=== PATIENT | female | born 1990 | race Caucasian/White ===

== ENCOUNTER 2016-05-26 11:19 | Emergency (ER) | payer MEDICAID | END 2016-05-26 12:51 | disposition home or self-care (01) | LOC: D.ER 11:19 | DX: M75.52 Bursitis of left shoulder (principal) ==

== ENCOUNTER 2016-12-04 21:43 | Emergency (ER) | payer MEDICAID | END 2016-12-05 01:07 | disposition home or self-care (01) | LOC: D.ER 21:43 | DX: J06.9 Acute upper respiratory infection, unspecified (principal) ==

== ENCOUNTER 2018-02-27 00:02 | Inpatient (IN) | payer MEDICAID ==
[~2018-02-27] VITALS: Ht 157.5 cm; Wt 104.5 kg
--- NOTE | 2018-02-27 00:53 | NUR ---
URINE SENT TO LAB
[2018-02-27 00:56] LABS: APPEARANCE CLEAR (CLEAR); COLOR DK YELLOW (YELLOW); NITRITE NEGATIVE (NEGATIVE)
[2018-02-27 00:57] LABS: BILIRUBIN 2+ (NEGATIVE); GLUCOSE NEGATIVE (NEGATIVE); KETONE NEGATIVE (NEGATIVE); PROTEIN NEGATIVE (NEGATIVE)
[2018-02-27 00:59] LABS: HCG URINE NEGATIVE (NEGATIVE)
[2018-02-27 01:16] LABS: BASOPHILS 0.3 % (0-2); EOSINOPHILS 0.7 % (0-7); HEMATOCRIT 37.6 % (36.0-48.0); HEMOGLOBIN 12.8 g/dL (12-16); IMMATURE GRANULOCYTES 0.1 % (0-5); LYMPHOCYTES 12.5 % (15-50); MCH 29.5 pg (26.0-34.0); MCV 86.6 fL (80.0-100.0); MEAN PLATELET VOLUME 9.7 fL (7.4-10.4); MONOCYTES 11.2 % (2-11); NEUTROPHILS 75.2 % (40-80); PLATELET COUNT 258 10x3/uL (130-400); RBC 4.34 10x6/uL (4.00-5.40); WBC 7.3 10x3/uL (4.8-10.8)
[2018-02-27 01:31] LABS: ALBUMIN 3.7 g/dL (3.4-5.0); ALKALINE PHOSPHATASE 148 U/L (46-116); ALT (SGPT) 735 U/L (10-68); BILIRUBIN - TOTAL 3.56 mg/dL (0.2-1.3); CALC OSMOLALITY 281 mosm/kg (275-300); CALCIUM 8.9 mg/dL (8.5-10.1); CARBON DIOXIDE 27.4 mmol/L (21.0-32.0); CHLORIDE - SERUM 104 mmol/L (98-107); CREATININE - SERUM 0.8 mg/dL (0.6-1.3); GLUCOSE 107 mg/dL (74-106); POTASSIUM - SERUM 3.8 mmol/L (3.5-5.1); PROTEIN - SERUM 7.5 g/dL (6.4-8.2); SODIUM 142 mmol/L (136-145); UREA NITROGEN 10 mg/dL (7-18); eGFR NON AFRICAN AMERICAN > 90 mL/min (90-120)
--- NOTE | 2018-02-27 02:49 | NUR ---
PT AMBULATED TO RESTROOM INDEPENDENTLY.
--- NOTE | 2018-02-27 03:01 | NUR ---
FLOOR TECH AT PT'S BEDSIDE TO DO ULTRASOUND
--- NOTE | 2018-02-27 04:57 | NUR ---
REC'D TO ROOM 2218 FROM ER DEPT PER W/C A 27 Y/O W/FE PER SERVICES DR. MCCORMICK WITH DX. CHOLECYSTITIS. NKDA.ASSESSMENT PER ADMIT PACKET.
[2018-02-27 05:07] VITALS: BMI 42.1
--- NOTE | 2018-02-27 08:00 | NUR ---
ASSESSMENT PER FLOW SHEET. PT IS WITHOUT DISTRESS. WATER PROVIDED.CALL LIGHT IN REACH.
[2018-02-27 08:51] VITALS: BP 113/60
[2018-02-27 13:54] LABS: ALBUMIN 2.7 g/dL (3.4-5.0); BILIRUBIN - DIRECT 1.58 mg/dL (0.00-0.30); BILIRUBIN - INDIRECT 0.59 mg/dL (0.00-1.00); BILIRUBIN - TOTAL 2.17 mg/dL (0.2-1.3); PROTEIN - SERUM 5.8 g/dL (6.4-8.2)
[2018-02-27 14:08] VITALS: Ht 157.5 cm; Wt 104.5 kg
[2018-02-27 15:59] VITALS: BP 83/50
--- NOTE | 2018-02-27 18:18 | NUR ---
PAIN CONTROLLED. SHE IS WITHOUT CHNAGE FROM INITIAL SHIFT ASSESSMENT. CONT PLAN OF CARE
--- NOTE | 2018-02-27 19:00 | NUR ---
REPORT RECEIVED AND CARE OF PT ASSUMED. PT LYING IN SEMI GALINDO'S POSITION VISITING WITH FAMILY MEMBERS. IV IN LEFT AC PATENT WITH NS INFUSING AT 125 ML / HR. DILAUDID PORT WARDEN IN USE FOR PAIN CONTROL. WILL MONITOR FOR NEEDS. CALL LIGHT WITHIN REACH.
--- NOTE | 2018-02-27 19:35 | NUR ---
HS MEDICATIONS GIVEN. WILL CONTINUE TO MONITOR FOR NEEDS.
[2018-02-27 20:00] VITALS: BP 99/57
--- NOTE | 2018-02-27 22:43 | NUR ---
PT RESTING IN SEMI GALINDO'S POSITION WITH EYES CLOSED AND EASY RESPIRAITONS. WILL CONTINUE TO MONITOR FOR NEEDS.
[2018-02-28] VITALS (7 sets, daily range): BP systolic 86–137; BP diastolic 49–78
[2018-02-28 05:56] LABS: BASOPHILS 0.1 % (0-2); EOSINOPHILS 0.4 % (0-7); HEMOGLOBIN 11.7 g/dL (12-16); IMMATURE GRANULOCYTES 0.1 % (0-5); LYMPHOCYTES 10.7 % (15-50); MCH 29.3 pg (26.0-34.0); MCHC 32.5 g/dL (31.0-37.0); MEAN PLATELET VOLUME 10.1 fL (7.4-10.4); MONOCYTES 7.3 % (2-11); NEUTROPHILS 81.4 % (40-80); PLATELET COUNT 274 10x3/uL (130-400); RDW 13.7 % (11.5-14.5); WBC 7.8 10x3/uL (4.8-10.8)
[2018-02-28 06:31] LABS: ALBUMIN 2.8 g/dL (3.4-5.0); ALKALINE PHOSPHATASE 135 U/L (46-116); ALT (SGPT) 438 U/L (10-68); BILIRUBIN - TOTAL 2.51 mg/dL (0.2-1.3); CALC OSMOLALITY 275 mosm/kg (275-300); CALCIUM 7.2 mg/dL (8.5-10.1); CARBON DIOXIDE 26.1 mmol/L (21.0-32.0); CHLORIDE - SERUM 107 mmol/L (98-107); CREATININE - SERUM 0.7 mg/dL (0.6-1.3); GLUCOSE 84 mg/dL (74-106); POTASSIUM - SERUM 3.9 mmol/L (3.5-5.1); PROTEIN - SERUM 5.7 g/dL (6.4-8.2); SODIUM 140 mmol/L (136-145); UREA NITROGEN 8 mg/dL (7-18); eGFR NON AFRICAN AMERICAN > 90 mL/min (90-120)
--- NOTE | 2018-02-28 18:55 | NUR ---
PATIENT IN BED WITH IV INTACT. NO COMPLAINTS OR SIGNS OF DISTRESS. BSCDS ON AND WORKING. CALL LIGHT WITHIN REACH.
--- NOTE | 2018-02-28 19:00 | NUR ---
REPORT RECEIVED AND CARE OF PT ASSUMED. PT LYING IN MID GALINDO'S POSITION VISITING WITH FAMILY MEMBERS. IV IN RIGHT FA PATENT WITH NS INFUSING AT 125 ML / HR. EVENTS ASSOCIATE W/ DILAUDID IN USE FOR PAIN CONTROL. WILL MONITOR FOR NEEDS. CALL LIGHT WITHIN REACH.
--- NOTE | 2018-02-28 21:46 | NUR ---
HS MEDICATIONS GIVEN. WILL CONTINUE TO MONITOR FOR NEEDS.
--- NOTE | 2018-02-28 23:43 | NUR ---
NPO STATUS BEGINS AT MIDNIGHT.
[2018-03-01] VITALS (12 sets, daily range): BP systolic 101–142; BP diastolic 56–97
--- NOTE | 2018-03-01 06:23 | NUR ---
PT CONSENTED FOR AM SURGERY. HIBACLENS BATH PERFORMED AND ALL LINENS AND GOWN CHANGED.
--- NOTE | 2018-03-01 10:20 | NUR ---
PATIENT TO OR
--- NOTE | 2018-03-01 12:30 | NUR ---
PATIENT BACK TO ROOM AT THIS TIME. NO COMPLAINTS IV INTACT. BSCDS ON AND WORKING. VS STABLE. FAMILY AT BEDSIDE. CALL LIGHT WITHIN REACH.
[2018-03-01 12:50] LABS: HEMATOCRIT 38.1 % (36.0-48.0); HEMOGLOBIN 12.6 g/dL (12-16); MCH 29.4 pg (26.0-34.0); MCHC 33.1 g/dL (31.0-37.0); MCV 88.8 fL (80.0-100.0); MEAN PLATELET VOLUME 9.5 fL (7.4-10.4); PLATELET COUNT 266 10x3/uL (130-400); RBC 4.29 10x6/uL (4.00-5.40); RDW 13.4 % (11.5-14.5); WBC 23.7 10x3/uL (4.8-10.8)
[2018-03-01 13:11] LABS: LYMPHOCYTES 3 % (15-50); MONOCYTES 1 % (2-11); NEUTROPHILS 91 % (40-80)
[2018-03-01 13:12] LABS: PLATELET ESTIMATE NORMAL
[2018-03-01 13:28] LABS: ALBUMIN 2.6 g/dL (3.4-5.0); ALKALINE PHOSPHATASE 151 U/L (46-116); BILIRUBIN - TOTAL 1.97 mg/dL (0.2-1.3); CALCIUM 7.3 mg/dL (8.5-10.1); CARBON DIOXIDE 24.7 mmol/L (21.0-32.0); CHLORIDE - SERUM 104 mmol/L (98-107); GLUCOSE 94 mg/dL (74-106); POTASSIUM - SERUM 3.6 mmol/L (3.5-5.1); PROTEIN - SERUM 5.3 g/dL (6.4-8.2); SODIUM 139 mmol/L (136-145); eGFR NON AFRICAN AMERICAN > 90 mL/min (90-120)
[2018-03-01 13:29] LABS: ALT (SGPT) 281 U/L (10-68); CALC OSMOLALITY 274 mosm/kg (275-300); CREATININE - SERUM 0.5 mg/dL (0.6-1.3); LIPASE 3241 U/L (73-393); UREA NITROGEN 5 mg/dL (7-18)
[2018-03-01 13:30] LABS: AMYLASE - SERUM 815 U/L (25-115)
--- NOTE | 2018-03-01 15:30 | NUR ---
PATIENT DRESSING TO DRAIN CHANGED AT THIS TIME. LEAKING AROUND SITE. DRAIN EMPTIED. NO COMPLAINTS OR SIGNS OF DISTRESS. VS STABLE CALL LIGHT WITHN REACH.
--- NOTE | 2018-03-01 18:45 | NUR ---
PATIENT IN BED WITH IV ITNACT. NO COMPLAINTS FAMILY AT BEDSIDE. ENCOURAGED PATIENT TO GET UP AND AMBULATE. VERBALIZED UNDERSTANDING. DRESSING TO ABDOMEN CDI. BSCDS OFF. FAMILY AT BEDSIDE. CALL LIGHT WITHIN REACH.
--- NOTE | 2018-03-01 19:00 | NUR ---
REPORT RECEIVED AND CARE OF PT ASSUMED. PT LYING IN LOW GALINDO'S POSITION WITH EYES CLOSED. IV IN LEFT AC PATENT WITH NS INFUSING AT 125 ML / HR. RIGHT ARM SWOLLEN....IV FLUSHES WELL...WILL MONITOR BECCA.
--- NOTE | 2018-03-01 19:20 | NUR ---
PT SLEEPING...O2 SATS 79% AT THIS VITALS CHECK. PUT ON 2L O2 VIA NC AND CARE UP TO 94%. WILL LEAVE ON O2 FOR NOW.
--- NOTE | 2018-03-01 20:56 | NUR ---
HS MEDICATIONS GIVEN. WILL CONTINUE TO MONITOR FOR NEEDS.
--- NOTE | 2018-03-01 22:01 | NUR ---
PT AMBULATING IN THE HALLWAY AT THIS TIME.
[2018-03-02] VITALS (7 sets, daily range): BP systolic 90–116; BP diastolic 57–70
[2018-03-02 06:44] LABS: BASOPHILS 0 % (0-2); EOSINOPHILS 0.1 % (0-7); HEMATOCRIT 32.2 % (36.0-48.0); HEMOGLOBIN 10.6 g/dL (12-16); IMMATURE GRANULOCYTES 0.2 % (0-5); LYMPHOCYTES 6.1 % (15-50); MCHC 32.9 g/dL (31.0-37.0); MEAN PLATELET VOLUME 9.9 fL (7.4-10.4); MONOCYTES 6.6 % (2-11); PLATELET COUNT 271 10x3/uL (130-400); RBC 3.66 10x6/uL (4.00-5.40); RDW 13.5 % (11.5-14.5); WBC 20.8 10x3/uL (4.8-10.8)
[2018-03-02 06:57] LABS: ALBUMIN 2.1 g/dL (3.4-5.0); ALKALINE PHOSPHATASE 114 U/L (46-116); ALT (SGPT) 211 U/L (10-68); BILIRUBIN - TOTAL 0.85 mg/dL (0.2-1.3); CALCIUM 7.3 mg/dL (8.5-10.1); CARBON DIOXIDE 27.5 mmol/L (21.0-32.0); CHLORIDE - SERUM 105 mmol/L (98-107); CREATININE - SERUM 0.6 mg/dL (0.6-1.3); GLUCOSE 88 mg/dL (74-106); POTASSIUM - SERUM 3.3 mmol/L (3.5-5.1); PROTEIN - SERUM 5.5 g/dL (6.4-8.2); SODIUM 141 mmol/L (136-145); eGFR NON AFRICAN AMERICAN > 90 mL/min (90-120)
[2018-03-02 06:58] LABS: CALC OSMOLALITY 277 mosm/kg (275-300); UREA NITROGEN 7 mg/dL (7-18)
[2018-03-02 09:37] LABS: LIPASE 932 U/L (73-393)
[2018-03-02 09:43] LABS: AMYLASE - SERUM 305 U/L (25-115)
--- NOTE | 2018-03-02 17:55 | OP ---
PATIENT NAME: CAROL MUSTAFA MEDICAL RECORD: [id number] :[birth year] LOCATION:D.MS [id number] ADMISSION DATE:02/27/18 SURGEON: ELLIOT MCCORMICK MD DATE OF OPERATION: 03/01/2018 PREOPERATIVE DIAGNOSES: 1. Acute cholecystitis. 2. Gallstones. POSTOPERATIVE DIAGNOSES: 1. Acute cholecystitis. 2. Gallstones. PROCEDURE: Laparoscopic cholecystectomy with attempted intraoperative cholangiogram. SURGEON: Elliot Mccormick MD REPORT OF PROCEDURE: The patient's abdomen was prepped and draped in sterile fashion. A cutdown was made on the superior aspect of the umbilicus. Vicryls #0 were placed on the fascia bilaterally and the fascia was incised with #15 blade. I then bluntly entered the peritoneal cavity and placed a 12-mm Pasquale port. Under direct visualization, a 5-mm trocar was placed in the epigastrium and two more 5-mm trocars were placed in the right subcostal region. There was noted to be inflammatory ascitic fluid in the right upper quadrant, but no signs of bile. This was suctioned out. We then grasped the gallbladder which had acute inflammatory changes present with edema to the wall. These were teased down carefully with blunt dissection. The patient had a large cystic artery and this was closely adherent to swollen lymph node. The artery was clipped proximally and distally and ligated in standard fashion. As we dissected out to get our critical view of safety, we could see there was another arterial branch present. This was clipped proximally and distally and ligated. This left us with the cystic duct. A couple of clips were placed proximally and an opening was made on the cystic duct. We were able to pass the Cook cholangiocath through the abdominal wall and into the cystic duct. There was some resistance with placing this, but eventually it was able to pass through. Multiple attempts were made to perform a cholangiogram, but there was always just extravasation of the contrast. We tried repositioning the catheter in different places. We tried opening up the cystotomy even further and every time we would pass the catheter through to the duct, we would get just extravasation of the contrast. I could see there was some extravasation down a little bit deeper on the cystic ducts. We dissected down to this and saw there was a small opening present. At this point, since the patient had an MRCP, which was normal, I decided to discontinue attempts in an intraoperative cholangiogram and just clipped the cystic duct distal to the small injury and the cystic duct was ligated. At this point, the gallbladder was taken off the liver bed using electrocautery and placed into an EndoCatch bag. The right upper quadrant was irrigated out and any bleeding from the liver bed was treated with electrocautery. A 19-Nepali Alvarado drain was inserted in the most lateral subcostal trocar site and was sutured into place with 2-0 nylon. The ports and insufflation were then removed and the gallbladder was taken out through the umbilicus. The umbilical fascia was closed with interrupted #0 Vicryls times 3. The wounds were irrigated out with normal saline and infused with 10 mL of 0.25% Marcaine with epinephrine. The skin incisions were all closed with subcutaneous 5-0 Monocryl and dressed appropriately. OPERATIVE REPORT [id number] CAROL MUSTAFA COMPLICATIONS: None. CONDITION: Stable. ANESTHESIA: General endotracheal and local. BLOOD LOSS: 30 mL. TRANSINT:[id number] Voice Confirmation ID: [id number] DOCUMENT ID: [id number] ELLIOT MCCORMICK MD at 1755 CC: [id number] DICTATION DATE: 03/01/18 1152 SURTASS ANALYST: 03/01/18 1539 ADM IN [place] [id number] [place] [id number]
--- NOTE | 2018-03-02 21:00 | NUR ---
PT SITTING UP IN BED, NO SIGNS OF DISTRESS. ALERT AND ORIENTED. IV LEFT AC INFUSING NS W/ DILAUDID SWITCHBOARD WIRER. PT STATES DISCOMFORT IN ABD, "FEELS LIKE GAS." ABD INCISIONS DRESSING CDI, FOSTER DRAIN DRAINING SERIOUS FLUID. PT AMBULATED IN HALLWAY, MADE 2 LAPS W/ MINIMAL ASSIST W/O DIFFICULTY. PT WAS ABLE TO START PASSING GAS. NO OTHER NEEDS OR COMPLAINTS AT THIS TIME. CL IN REACH, WILL CONTINUE TO MONITOR
[2018-03-03] VITALS (7 sets, daily range): BP systolic 109–132; BP diastolic 69–81
[2018-03-03 06:17] LABS: BASOPHILS 0.1 % (0-2); EOSINOPHILS 0.3 % (0-7); HEMATOCRIT 32.2 % (36.0-48.0); HEMOGLOBIN 10.7 g/dL (12-16); IMMATURE GRANULOCYTES 0.5 % (0-5); LYMPHOCYTES 6.1 % (15-50); MCH 29.4 pg (26.0-34.0); MCHC 33.2 g/dL (31.0-37.0); MCV 88.5 fL (80.0-100.0); MEAN PLATELET VOLUME 9.8 fL (7.4-10.4); MONOCYTES 8.2 % (2-11); NEUTROPHILS 84.8 % (40-80); PLATELET COUNT 290 10x3/uL (130-400); RBC 3.64 10x6/uL (4.00-5.40); RDW 13.7 % (11.5-14.5); WBC 17.2 10x3/uL (4.8-10.8)
[2018-03-03 06:36] LABS: ALBUMIN 2.1 g/dL (3.4-5.0); ALKALINE PHOSPHATASE 100 U/L (46-116); BILIRUBIN - TOTAL 0.93 mg/dL (0.2-1.3); CALCIUM 7.6 mg/dL (8.5-10.1); CHLORIDE - SERUM 102 mmol/L (98-107); CREATININE - SERUM 0.5 mg/dL (0.6-1.3); GLUCOSE 93 mg/dL (74-106); LIPASE 216 U/L (73-393); POTASSIUM - SERUM 3.1 mmol/L (3.5-5.1); PROTEIN - SERUM 5.6 g/dL (6.4-8.2); SODIUM 141 mmol/L (136-145); eGFR NON AFRICAN AMERICAN > 90 mL/min (90-120)
[2018-03-03 06:40] LABS: ALT (SGPT) 157 U/L (10-68); AMYLASE - SERUM 101 U/L (25-115); CALC OSMOLALITY 277 mosm/kg (275-300); UREA NITROGEN 5 mg/dL (7-18)
--- NOTE | 2018-03-03 08:15 | NUR ---
PATIENT IN BED WITH IV INTACT. NO COMPLAINTS OR SIGNS OF DISTRESS. FAMILY AT BEDSIDE. CALL LIGHT WITHIN REACH.
--- NOTE | 2018-03-03 10:00 | NUR ---
PATIENT SITTING UP IN CHAIR. IV INTACT. CALL LIGHT WITHIN REACH. FOSTER DRAIN INTACT AND EMPTIED.
--- NOTE | 2018-03-03 13:40 | NUR ---
PATIENT RECIEVED BB FROM MOM AT THIS TIME.
--- NOTE | 2018-03-03 18:55 | NUR ---
PATIENT IN BED WITH IV INTACT. NO COMPLAINTS. FOSTER DRAIN COMPRESSED AND INTACT. CALL LIGHT WITHIN REACH.
[2018-03-04 04:00] VITALS: BP 126/74
[2018-03-04 05:56] LABS: BASOPHILS 0.1 % (0-2); HEMATOCRIT 30.4 % (36.0-48.0); HEMOGLOBIN 10.1 g/dL (12-16); IMMATURE GRANULOCYTES 0.3 % (0-5); LYMPHOCYTES 6.3 % (15-50); MCH 29.2 pg (26.0-34.0); MCHC 33.2 g/dL (31.0-37.0); MCV 87.9 fL (80.0-100.0); MEAN PLATELET VOLUME 9.4 fL (7.4-10.4); NEUTROPHILS 82.3 % (40-80); PLATELET COUNT 314 10x3/uL (130-400); RBC 3.46 10x6/uL (4.00-5.40); RDW 13.7 % (11.5-14.5); WBC 14.3 10x3/uL (4.8-10.8)
[2018-03-04 06:41] LABS: ALBUMIN 1.9 g/dL (3.4-5.0); ALKALINE PHOSPHATASE 93 U/L (46-116); BILIRUBIN - TOTAL 0.91 mg/dL (0.2-1.3); CALC OSMOLALITY 277 mosm/kg (275-300); CALCIUM 7.6 mg/dL (8.5-10.1); CARBON DIOXIDE 30.5 mmol/L (21.0-32.0); CHLORIDE - SERUM 102 mmol/L (98-107); CREATININE - SERUM 0.4 mg/dL (0.6-1.3); GLUCOSE 102 mg/dL (74-106); LIPASE 122 U/L (73-393); PROTEIN - SERUM 5.3 g/dL (6.4-8.2); SODIUM 141 mmol/L (136-145); UREA NITROGEN 5 mg/dL (7-18); eGFR NON AFRICAN AMERICAN > 90 mL/min (90-120)
[2018-03-04 06:59] LABS: ALT (SGPT) 103 U/L (10-68); AMYLASE - SERUM 42 U/L (25-115); POTASSIUM - SERUM 2.9 mmol/L (3.5-5.1)
[2018-03-04 08:39] VITALS: BP 110/72
[2018-03-04] MEDS ORDERED: NORCO-10 PO (09:03)
[2018-03-04] MEDS ORDERED: LEVAQUIN750 MG PO (09:04)
--- NOTE | 2018-03-04 09:40 | MORECARE ---
CASE MANAGEMENT DISCHARGE SUMMARY PATIENT: CAROL WILLIAMSON UNIT: [id number] ADM DATE: 02/27/18 AGE: 27 : [birth year] SEX: F ROOM/BED: D.2218 AUTHOR: TERA ORTIZ PHYSICIAN: REFERRING PHYSICIAN: MORRIS MCCORMICK MD DATE OF SERVICE: 03/04/18 Discharge Plan Patient Name: CAROL WILLIAMSON [facility] [facility] 1990 Planned Disposition: Home Anticipated Discharge Date: Discharge Date: Expected LOS: Initial Reviewer: [email or web address] Initial Review Date: 03/04/2018 Generated: 03/04/18 10:39 am DCPIA - Discharge Planning Initial Assessment Updated by [email or web address]: Dior Hinson on 03/04/18 9:40 am * Is the patient Alert and Oriented? Yes * How many steps to enter\exit or inside your home? 03/03 * PCP None * Pharmacy [facility] on [address] * Preadmission Environment Home with Family * ADLs Independent * Equipment None * List name and contact numbers for known caregivers / representatives who currently or will assist patient after discharge: Keisha Williamson - mother - [phone] * Verbal permission to speak to the caregivers and representatives has been obtained from the patient. Yes * Community resources currently utilized None * Additional services required to return to the preadmission environment? No * Can the patient safely return to the preadmission environment? Yes * Has this patient been hospitalized within the prior 30 days at any hospital? No Patient Name: CAROL WILLIAMSON Page [id number] at 0940 All edits/amendments must be made on the electronic document DICTATION DATE: 03/04/18938 THERAPIST RESPIRATORY: MAYLIN 03/04/18938 RPT#: [id number] DC DATE: STATUS: ADM IN [facility] [address] [place] [address] END OF REPORT
--- NOTE | 2018-03-04 09:43 | NUR ---
ASSESSMENT PER FLOW SHEET. PT IS WITHOUT DISTRESS.CALL LIGHT IN REACH
--- NOTE | 2018-03-04 09:47 | MORECARE ---
CASE MANAGEMENT DISCHARGE SUMMARY PATIENT: CAROL MUSTAFA UNIT: [id number] ADM DATE: 02/27/18 AGE: 27 : [birth year] SEX: F ROOM/BED: D.2218 AUTHOR: TERA ORTIZ PHYSICIAN: REFERRING PHYSICIAN: MORRIS MCCORMICK MD DATE OF SERVICE: 03/04/18 Discharge Plan Patient Name: CAROL MUSTAFA Facility: [facility]:[place] : 1990 Planned Disposition: Home Anticipated Discharge Date: Discharge Date: Expected LOS: Initial Reviewer: [email or web address] Initial Review Date: 03/04/2018 Generated: 03/04/18 10:46 am Comments DCP- Discharge Planning Updated by [email or web address]: Dior Hinson on 03/04/18 8:[address] Patient Name: CAROL MUSTAFA Admission Status: ER Accout number: [id number] Admission Date: 02-27-2018 : 1990 Admission Diagnosis:ACUTE CHOLECYSTITIS Attending: MORRIS MCCORMICK Current LOS: 5 Anticipated DC Date: Planned Disposition: Home Primary Insurance: MEDICAID [place] PENDING Discharge Planning Comments: Received order for discharge. CM met with patient to discuss discharge plan, she is alone in the room. States she is independent with all ADL's and IADL's. States her mother will take her home on discharge, she lives with her mother. Declines need for HHS or DME. No needs identified. CM will continue to follow and assist with discharge planning/needs. Engineering Tech: Dior Hinson DCPIA - Discharge Planning Initial Assessment Updated by [email or web address]: Dior Hinson on 03/04/18 9:40 am * Is the patient Alert and Oriented? Yes * How many steps to enter\exit or inside your home? 03/03 * PCP None * Pharmacy [facility] [address] * Preadmission Environment Home with Family * ADLs Independent * Equipment None * List name and contact numbers for known caregivers / representatives who currently or will assist patient after discharge: Keisha Ragland mother - [phone] * Verbal permission to speak to the caregivers and representatives has been obtained from the patient. Yes * Community resources currently utilized None * Additional services required to return to the preadmission environment? No * Can the patient safely return to the preadmission environment? Yes * Has this patient been hospitalized within the prior 30 days at any hospital? No Last DP export: 03/04/18 8:40 am Patient Name: CAROL MUSTAFA Page [id number] at 0947 All edits/amendments must be made on the electronic document DICTATION DATE: 03/04/18945 ANODIZING LINE OPERATOR: MAYLIN 03/04/18945 RPT#: [id number] DC DATE: STATUS: ADM IN [facility] [address] [place] [address] END OF REPORT
--- NOTE | 2018-03-04 10:00 | NUR ---
DISCHARGE INSTRUCTIONS. PT STATES UNDERSTANDING. IV DCD WITH CATH TIP INTACT. FOSTER DRAIN DCD ORDERED.
--- NOTE | 2018-03-04 10:21 | NUR ---
PT IS STILL WAITING ON RIDE FOR TRANSPORT HOME
--- NOTE | 2018-03-04 11:00 | NUR ---
LEFT UNIT FOR TRANSORT HOME
--- NOTE | 2018-03-04 16:25 | MORECARE ---
CASE MANAGEMENT DISCHARGE SUMMARY PATIENT: CAROL WILLIAMSON UNIT: [id number] ADM DATE: 02/27/18 AGE: 27 : [birth year] SEX: F ROOM/BED: D.2218 AUTHOR: TERA ORTIZ PHYSICIAN: REFERRING PHYSICIAN: MORRIS MCCORMICK MD DATE OF SERVICE: 03/04/18 Discharge Plan Patient Name: CAROL WILLIAMSON Facility: [facility]:[place] : 1990 Planned Disposition: Home Anticipated Discharge Date: Discharge Date: 03/04/2018 Expected LOS: 0 Initial Reviewer: [email or web address] Initial Review Date: 03/04/2018 Generated: 03/04/18 5:25 pm Comments DCP- Discharge Planning Updated by [email or web address]: Dior Hinson on 03/04/18 8:[address] Patient Name: CAROL WILLIAMSON Admission Status: ER Accout number: [id number] Admission Date: 02-27-2018 : 1990 Admission Diagnosis:ACUTE CHOLECYSTITIS Attending: MORRIS MCCORMICK Current LOS: 5 Anticipated DC Date: Planned Disposition: Home Primary Insurance: MEDICAID [place] PENDING Discharge Planning Comments: Received order for discharge. CM met with patient to discuss discharge plan, she is alone in the room. States she is independent with all ADL's and IADL's. States her mother will take her home on discharge, she lives with her mother. Declines need for HHS or DME. No needs identified. CM will continue to follow and assist with discharge planning/needs. Refractory Worker: Dior Hinson DCPIA - Discharge Planning Initial Assessment Updated by [email or web address]: Dior Hinson on 03/04/18 9:40 am * Is the patient Alert and Oriented? Yes * How many steps to enter\exit or inside your home? 03/03 * PCP None * Pharmacy [facility] [address] * Preadmission Environment Home with Family * ADLs Independent * Equipment None * List name and contact numbers for known caregivers / representatives who currently or will assist patient after discharge: Keisha Williamson - mother - [phone] * Verbal permission to speak to the caregivers and representatives has been obtained from the patient. Yes * Community resources currently utilized None * Additional services required to return to the preadmission environment? No * Can the patient safely return to the preadmission environment? Yes * Has this patient been hospitalized within the prior 30 days at any hospital? No Last DP export: 03/04/18 8:46 am Patient Name: CAROL WILLIAMSON Page [id number] at 1625 All edits/amendments must be made on the electronic document DICTATION DATE: 03/04/181623 PAINTER PLATE: MAYLIN 03/04/181623 RPT#: [id number] DC DATE:03/04/18 STATUS: DIS IN [facility] [address] [place] [address] END OF REPORT
== END 2018-03-04 11:00 | disposition home or self-care (01) | DRG 417 ==
LOC: D.ER 00:02 → D.MS 03:21
PROVIDERS: Emergency Medicine; ADMIT Surgery
PROC: 0FT44ZZ Resection of Gallbladder, Percutaneous Endoscopic Approach (ICD-10-PCS; principal; 2018-03-01 10:00)
DX: K80.42 Calculus of bile duct with acute cholecystitis without obstruction (principal); K85.10 Biliary acute pancreatitis without necrosis or infection

== ENCOUNTER 2018-03-10 18:53 | Inpatient (IN) | payer MEDICAID ==
[~2018-03-10] VITALS: Ht 157.5 cm; Wt 104.5 kg
[~2018-03-10 18:53] MED LIST: LEVAQUIN750 MG PO; NORCO-10 PO
[2018-03-10 19:40] LABS: APPEARANCE CLEAR (CLEAR); BILIRUBIN NEGATIVE (NEGATIVE); COLOR YELLOW (YELLOW); GLUCOSE NEGATIVE (NEGATIVE); KETONE NEGATIVE (NEGATIVE); NITRITE NEGATIVE (NEGATIVE); PROTEIN NEGATIVE (NEGATIVE); UROBILINOGEN NORMAL (NORMAL)
[2018-03-10 19:56] LABS: BASOPHILS 0.3 % (0-2); EOSINOPHILS 0.8 % (0-7); HEMATOCRIT 34.6 % (36.0-48.0); HEMOGLOBIN 11.4 g/dL (12-16); IMMATURE GRANULOCYTES 0.6 % (0-5); LYMPHOCYTES 17.4 % (15-50); MCH 28.9 pg (26.0-34.0); MCHC 32.9 g/dL (31.0-37.0); MCV 87.8 fL (80.0-100.0); MEAN PLATELET VOLUME 8.6 fL (7.4-10.4); MONOCYTES 5.2 % (2-11); NEUTROPHILS 75.7 % (40-80); RBC 3.94 10x6/uL (4.00-5.40); RDW 13.3 % (11.5-14.5); WBC 13.2 10x3/uL (4.8-10.8)
[2018-03-10 20:09] LABS: PLATELET COUNT 534 10x3/uL (130-400)
[2018-03-10 20:14] LABS: ALBUMIN 2.4 g/dL (3.4-5.0); ALKALINE PHOSPHATASE 89 U/L (46-116); ALT (SGPT) 46 U/L (10-68); AMYLASE - SERUM 78 U/L (25-115); BILIRUBIN - TOTAL 0.39 mg/dL (0.2-1.3); CALC OSMOLALITY 276 mosm/kg (275-300); CALCIUM 8.8 mg/dL (8.5-10.1); CARBON DIOXIDE 28.3 mmol/L (21.0-32.0); CHLORIDE - SERUM 103 mmol/L (98-107); CREATININE - SERUM 0.8 mg/dL (0.6-1.3); GLUCOSE 93 mg/dL (74-106); LIPASE 776 U/L (73-393); POTASSIUM - SERUM 3.8 mmol/L (3.5-5.1); SODIUM 140 mmol/L (136-145); UREA NITROGEN 6 mg/dL (7-18); eGFR NON AFRICAN AMERICAN > 90 mL/min (90-120)
--- NOTE | 2018-03-10 22:16 | NUR ---
RECIEVED TO ROOM. ALERT,ORIENTED.NO DISTRESS NOTED. RESP UNLAOBORED. SL TO RIGHT HAND WITHOUT REDNESS OR EDEMA NOTED. COMPLAINTS OF ABD PAIN. ABD SOFT NONDISTENDED.STERI STRIPS INTACT TO ABD LAP INCISIONS FROM PREVIOUS SURGERY. NO DRAINAGE NOTED. ORIENTED TO ROOM. CL IN REACH.
[2018-03-11 00:47] VITALS: BP 111/66; BMI 42.1
[2018-03-11 05:36] VITALS: BP 92/53
--- NOTE | 2018-03-11 08:28 | NUR ---
PT RESTING IN BED TALKING ON PHONE. NO S/S OF ACUTE DISTRESS. CL IN PLACE.
[2018-03-11 08:45] VITALS: BP 90/55
[2018-03-11 09:15] LABS: BASOPHILS 0.2 % (0-2); EOSINOPHILS 1.6 % (0-7); HEMOGLOBIN 10.8 g/dL (12-16); IMMATURE GRANULOCYTES 0.7 % (0-5); LYMPHOCYTES 19.8 % (15-50); MCH 28.8 pg (26.0-34.0); MCHC 32.7 g/dL (31.0-37.0); MEAN PLATELET VOLUME 8.3 fL (7.4-10.4); MONOCYTES 7.4 % (2-11); NEUTROPHILS 70.3 % (40-80); PLATELET COUNT 429 10x3/uL (130-400); RBC 3.75 10x6/uL (4.00-5.40); RDW 13.4 % (11.5-14.5)
[2018-03-11 09:29] LABS: ALBUMIN 2.2 g/dL (3.4-5.0); ALKALINE PHOSPHATASE 79 U/L (46-116); ALT (SGPT) 40 U/L (10-68); BILIRUBIN - TOTAL 0.41 mg/dL (0.2-1.3); CALC OSMOLALITY 269 mosm/kg (275-300); CALCIUM 8.4 mg/dL (8.5-10.1); CARBON DIOXIDE 28.7 mmol/L (21.0-32.0); CHLORIDE - SERUM 104 mmol/L (98-107); CREATININE - SERUM 0.7 mg/dL (0.6-1.3); GLUCOSE 89 mg/dL (74-106); LIPASE 642 U/L (73-393); POTASSIUM - SERUM 3.7 mmol/L (3.5-5.1); PROTEIN - SERUM 6.3 g/dL (6.4-8.2); SODIUM 137 mmol/L (136-145); eGFR NON AFRICAN AMERICAN > 90 mL/min (90-120)
[2018-03-11 09:31] LABS: UREA NITROGEN 4 mg/dL (7-18)
[2018-03-11 09:33] LABS: WBC 9.5 10x3/uL (4.8-10.8)
[2018-03-11 09:55] VITALS: Ht 157.5 cm; Wt 104.5 kg
[2018-03-11 12:59] VITALS: BP 100/64
[2018-03-11 17:01] VITALS: BP 108/70
--- NOTE | 2018-03-11 20:04 | NUR ---
PT RESTING IN BED WITH X6 FAMILY MEMBERS IN THE ROOM. NO S/S OF ACUTE DISTRESS. CL IN PLACE.
--- NOTE | 2018-03-11 20:23 | NUR ---
AWAKE,ALERT,NO COMPLAINTS VOICED. RESP EVEN AND UNALBORED. NO DISTRESS NOTED. IV INFUSING TO RIGHT HAND WITHOUT REDNESS OR EDEMA NOTED. CL IN REACH
[2018-03-12 00:15] VITALS: BP 94/51
--- NOTE | 2018-03-12 00:33 | NUR ---
LYING IN BED WITH EYES CLOSED. RESP EVEN AND NONLABORED. NO DISTRESS. IV INFUSING IN RT HAND WITHOUT DIFF. WOOL FLEECE SORTER IN USE. SR ELEVATED X2. CL IN REACH.
[2018-03-12 04:23] VITALS: BP 110/74
[2018-03-12 05:12] LABS: ALBUMIN 2.1 g/dL (3.4-5.0); ALKALINE PHOSPHATASE 69 U/L (46-116); ALT (SGPT) 35 U/L (10-68); AMYLASE - SERUM 90 U/L (25-115); BILIRUBIN - TOTAL 0.41 mg/dL (0.2-1.3); CALC OSMOLALITY 287 mosm/kg (275-300); CALCIUM 8.4 mg/dL (8.5-10.1); CARBON DIOXIDE 29.8 mmol/L (21.0-32.0); CHLORIDE - SERUM 105 mmol/L (98-107); CREATININE - SERUM 0.6 mg/dL (0.6-1.3); GLUCOSE 77 mg/dL (74-106); LIPASE 674 U/L (73-393); POTASSIUM - SERUM 3.6 mmol/L (3.5-5.1); PROTEIN - SERUM 6.1 g/dL (6.4-8.2); SODIUM 146 mmol/L (136-145); eGFR NON AFRICAN AMERICAN > 90 mL/min (90-120)
[2018-03-12 05:21] LABS: UREA NITROGEN 7 mg/dL (7-18)
--- NOTE | 2018-03-12 08:05 | NUR ---
PT AOX4 RESP EVEN AND NONLABORED PT DENIES NEEDS AT THIS TIME IV TO RIGHT HAND PATENT AND INTACT AT THIS TIME SRX2 BED AT LOWEST SETTING CALL LIGHT WITHIN REACH WILL CONTINUE TO MONITOR
[2018-03-12 08:22] VITALS: BP 99/56
--- NOTE | 2018-03-12 12:17 | MORECARE ---
CASE MANAGEMENT DISCHARGE SUMMARY PATIENT: CAROL MUSTAFA UNIT: [id number] ADM DATE: 03/10/18 AGE: 27 : [birth year] SEX: F ROOM/BED: D.2201 AUTHOR: TERA ORTIZ PHYSICIAN: REFERRING PHYSICIAN: MORRIS MCCORMICK MD DATE OF SERVICE: 03/12/18 Discharge Plan Patient Name: CAROL MUSTAFA [facility] [facility] 1990 Planned Disposition: Home Anticipated Discharge Date: Discharge Date: Expected LOS: Initial Reviewer: [email or web address] Initial Review Date: 03/10/2018 Generated: 03/12/18 1:17 pm DCPIA - Discharge Planning Initial Assessment Updated by [email or web address]: Yue Griffith on 03/12/18 12:14 pm * Is the patient Alert and Oriented? Yes * How many steps to enter\exit or inside your home? * PCP NONE * Pharmacy [facility] ON [address] * Preadmission Environment Home with Family * ADLs Independent * Equipment None * List name and contact numbers for known caregivers / representatives who currently or will assist patient after discharge: MARILYN () [phone] * Verbal permission to speak to the caregivers and representatives has been obtained from the patient. Yes * Community resources currently utilized None * Additional services required to return to the preadmission environment? No * Can the patient safely return to the preadmission environment? Yes * Has this patient been hospitalized within the prior 30 days at any hospital? Yes Patient Name: CAROL MUSTAFA Page 13658 at 1217 All edits/amendments must be made on the electronic document DICTATION DATE: 03/12/18 1217 TUBER OPERATOR: MAYLIN 03/12/18 1217 RPT#: [id number] DC DATE: STATUS: ADM IN [facility] [address] [place] [address] END OF REPORT
--- NOTE | 2018-03-12 12:40 | MORECARE ---
CASE MANAGEMENT DISCHARGE SUMMARY PATIENT: CAROL MUSTAFA UNIT: [id number] ADM DATE: 03/10/18 AGE: 27 : [birth year] SEX: F ROOM/BED: D.2201 AUTHOR: DIANADOC PHYSICIAN: REFERRING PHYSICIAN: MORRIS MCCORMICK MD DATE OF SERVICE: 03/12/18 Discharge Plan Patient Name: CAROL MUSTAFA Facility: [facility]:[place] : 1990 Planned Disposition: Home Anticipated Discharge Date: Discharge Date: Expected LOS: Initial Reviewer: [email or web address] Initial Review Date: 03/10/2018 Generated: 03/12/18 1:40 pm Comments DCP- Discharge Planning Updated by [email or web address]: Yue Griffith on 03/12/18 11:[address] Patient Name: CAROL MUSTAFA Admission Status: ER Accout number: [id number] Admission Date: 03-10-2018 : 1990 Admission Diagnosis: Attending: MORRIS MCCORMICK Current LOS: 2 Anticipated DC Date: Planned Disposition: Home Primary Insurance: MEDICAID [place] Discharge Planning Comments: CM met with patient to assess discharge planning needs. Patient stated that she plans to return home and Oj will be her dedicated driver home. She does not use any DME or community resources she states her home is safe to return. CM will continue to follow and assist with dc ploanning Director Hris: Yue Griffith DCPIA - Discharge Planning Initial Assessment Updated by [email or web address]: Yue Griffith on 03/12/18 12:14 pm * Is the patient Alert and Oriented? Yes * How many steps to enter\exit or inside your home? * PCP NONE * Pharmacy [facility] [address] * Preadmission Environment Home with Family * ADLs Independent * Equipment None * List name and contact numbers for known caregivers / representatives who currently or will assist patient after discharge: OJ () [phone] * Verbal permission to speak to the caregivers and representatives has been obtained from the patient. Yes * Community resources currently utilized None * Additional services required to return to the preadmission environment? No * Can the patient safely return to the preadmission environment? Yes * Has this patient been hospitalized within the prior 30 days at any hospital? Yes Last DP export: 03/12/18 11:17 a Patient Name: CAROL MUSTAFA Page [phone] at 1240 All edits/amendments must be made on the electronic document DICTATION DATE: 03/12/18 124 PRACTICE ARCHITECT: MAYLIN 03/12/18 1240 RPT#: [id number] DC DATE: STATUS: ADM IN [facility] [address] [place] [address] END OF REPORT
[2018-03-12 13:16] VITALS: BP 115/70
[2018-03-12 16:51] VITALS: BP 116/70
[2018-03-12 20:53] VITALS: BP 114/75
--- NOTE | 2018-03-13 02:52 | NUR ---
RESTING SLEEPING NO S/S OF DISTRESS. CALL LIGHT IN REACH.
[2018-03-13 04:51] VITALS: BP 110/63
[2018-03-13 05:25] LABS: BASOPHILS 0.1 % (0-2); EOSINOPHILS 1.5 % (0-7); HEMATOCRIT 33.3 % (36.0-48.0); HEMOGLOBIN 11.1 g/dL (12-16); IMMATURE GRANULOCYTES 0.4 % (0-5); LYMPHOCYTES 21.5 % (15-50); MCH 28.9 pg (26.0-34.0); MCHC 33.3 g/dL (31.0-37.0); MCV 86.7 fL (80.0-100.0); MEAN PLATELET VOLUME 8.7 fL (7.4-10.4); MONOCYTES 7.8 % (2-11); NEUTROPHILS 68.7 % (40-80); PLATELET COUNT 477 10x3/uL (130-400); RBC 3.84 10x6/uL (4.00-5.40); RDW 12.8 % (11.5-14.5); WBC 7.9 10x3/uL (4.8-10.8)
[2018-03-13 05:29] LABS: AMYLASE - SERUM 78 U/L (25-115); CALC OSMOLALITY 273 mosm/kg (275-300); CALCIUM 8.5 mg/dL (8.5-10.1); CARBON DIOXIDE 30.8 mmol/L (21.0-32.0); CHLORIDE - SERUM 100 mmol/L (98-107); CREATININE - SERUM 0.6 mg/dL (0.6-1.3); GLUCOSE 77 mg/dL (74-106); LIPASE 555 U/L (73-393); POTASSIUM - SERUM 4.1 mmol/L (3.5-5.1); SODIUM 138 mmol/L (136-145); eGFR NON AFRICAN AMERICAN > 90 mL/min (90-120)
[2018-03-13 05:41] LABS: UREA NITROGEN 10 mg/dL (7-18)
[2018-03-13 09:35] VITALS: BP 100/63
--- NOTE | 2018-03-13 10:46 | NUR ---
PT RESTING IN BED. NO SIGNS OF DISTRESS. IV TO RIGHT HAND PATENT NO REDNESS OR TENDERNESS. HAS 3 LAP SITES CLEAN. COMPLAINS OF ITCHING ON ABDOMEN. DENIES ANY OTHER NEED AT THIS TIME. CALL LIGHT IN REACH. BED LOW POSITION. FAMILY AT BEDSIDE.
[2018-03-13 14:13] VITALS: BP 97/43
[2018-03-13 15:42] VITALS: BP 124/70
[2018-03-13 21:28] VITALS: BP 108/67
[2018-03-14 00:29] VITALS: BP 110/65
[2018-03-14 04:00] VITALS: BP 83/50
--- NOTE | 2018-03-14 08:00 | NUR ---
LAYING IN BED, EYES CLOSED, EASILY AROUSED BY VOICE, EVEN UNLABORED BREATHING, DILAUDID DRUG SAFETY SCIENTIST, ON ROOM AIR, DENIES ANY CURRENT NEEDS, BED LOWERED AND LOCKED, CALL LIGHT WITHIN REACH. CPOC
[2018-03-14 08:29] LABS: BASOPHILS 0.3 % (0-2); EOSINOPHILS 2.2 % (0-7); IMMATURE GRANULOCYTES 0.4 % (0-5); LYMPHOCYTES 22.1 % (15-50); MCH 28.8 pg (26.0-34.0); MCHC 33.4 g/dL (31.0-37.0); MCV 86.2 fL (80.0-100.0); MEAN PLATELET VOLUME 8.9 fL (7.4-10.4); PLATELET COUNT 541 10x3/uL (130-400); RDW 12.9 % (11.5-14.5); WBC 6.9 10x3/uL (4.8-10.8)
[2018-03-14 08:30] LABS: HEMATOCRIT 41.3 % (36.0-48.0); HEMOGLOBIN 13.8 g/dL (12-16); RBC 4.79 10x6/uL (4.00-5.40)
[2018-03-14 08:46] LABS: ALBUMIN 3.1 g/dL (3.4-5.0); ALKALINE PHOSPHATASE 78 U/L (46-116); ALT (SGPT) 39 U/L (10-68); AMYLASE - SERUM 65 U/L (25-115); BILIRUBIN - TOTAL 0.58 mg/dL (0.2-1.3); CALC OSMOLALITY 275 mosm/kg (275-300); CALCIUM 9.2 mg/dL (8.5-10.1); CARBON DIOXIDE 28.5 mmol/L (21.0-32.0); CHLORIDE - SERUM 99 mmol/L (98-107); CREATININE - SERUM 0.7 mg/dL (0.6-1.3); GLUCOSE 76 mg/dL (74-106); LIPASE 495 U/L (73-393); POTASSIUM - SERUM 4.4 mmol/L (3.5-5.1); SODIUM 139 mmol/L (136-145); UREA NITROGEN 11 mg/dL (7-18); eGFR NON AFRICAN AMERICAN > 90 mL/min (90-120)
[2018-03-14 09:00] VITALS: BP 113/71
[2018-03-14 12:00] VITALS: BP 105/73
[2018-03-14 16:00] VITALS: BP 117/76
--- NOTE | 2018-03-14 18:37 | NUR ---
SITTING UP RIGHT IN BED, EVEN UNLABORED BREATHING, DENIES ANY CURRENT NEEDS OR DISCOMFORTS, IV PATENT IN RIGHT HAND, INFUSING FLUIDS, BED LOWERED AND LOCKED, CALL LIGHT WITHIN REACH. CPOC
--- NOTE | 2018-03-14 19:34 | NUR ---
DRESSING INTACT TO ABDOMEN. DENIES ANY PAIN OR DISCOMFORT AT THIS TIME. IVF INFUSING AT 75CC/HR. ENCOURAGED TO USE CALL LIGHT FOR ASSIST. VERBALIZED UNDERSTANDING
[2018-03-14 19:38] VITALS: BP 117/78
--- NOTE | 2018-03-14 20:07 | NUR ---
DISCONNECTED PATIENT FROM IV FOR HER TO TAKE A SHOWER. I ALSO BROUGHT THE PATIENT TOWELS PER HER REQUEST. PATIENT DENIES OTHER NEEDS AT THIS TIME. ENCOURAGED THE PATIENT TO CALL IF SHE HAS NEEDS.
[2018-03-15] VITALS: BP 106/66
[2018-03-15 04:00] VITALS: BP 102/66
[2018-03-15 07:09] LABS: BASOPHILS 0.3 % (0-2); EOSINOPHILS 2.1 % (0-7); HEMATOCRIT 37.6 % (36.0-48.0); HEMOGLOBIN 12.4 g/dL (12-16); IMMATURE GRANULOCYTES 0.7 % (0-5); LYMPHOCYTES 26.7 % (15-50); MCH 28.5 pg (26.0-34.0); MCV 86.4 fL (80.0-100.0); MEAN PLATELET VOLUME 8.9 fL (7.4-10.4); MONOCYTES 8.4 % (2-11); NEUTROPHILS 61.8 % (40-80); PLATELET COUNT 525 10x3/uL (130-400); RBC 4.35 10x6/uL (4.00-5.40); WBC 7.2 10x3/uL (4.8-10.8)
--- NOTE | 2018-03-15 07:20 | NUR ---
PT RESTING IN BED WATCHING TV. NO C/O PAIN. NO S/S OF ACUTE DISTRESS NOTED. PT ALERT AND ORIENTED. UP AD ANILA. IV TO RIGHT WRIST, SITE PATENT WITHOUT REDNESS OR SWELLING. PROCAL INFUSING @ 30ML/HR. PT DENIES ANYTHING FURTHER AT THIS TIME. CALL LIGHT IN REACH. WILL CONTINUE TO MONITOR.
[2018-03-15 07:32] LABS: CALC OSMOLALITY 275 mosm/kg (275-300); CALCIUM 8.9 mg/dL (8.5-10.1); CARBON DIOXIDE 26.5 mmol/L (21.0-32.0); CHLORIDE - SERUM 102 mmol/L (98-107); CREATININE - SERUM 0.6 mg/dL (0.6-1.3); GLUCOSE 82 mg/dL (74-106); LIPASE 350 U/L (73-393); SODIUM 140 mmol/L (136-145); UREA NITROGEN 8 mg/dL (7-18); eGFR NON AFRICAN AMERICAN > 90 mL/min (90-120)
[2018-03-15 09:00] VITALS: BP 102/60
[2018-03-15 12:00] VITALS: BP 113/69
--- NOTE | 2018-03-15 15:37 | NUR ---
PT KEEPS GETTING UP OUT OF BED WITHOUT ASSISTANCE. SHUTTLE FILLER, THIS NURSE, AND AIR MOTOR REPAIRER HAVE BEEN IN THE ROOM SEVERAL TIMES TO ASSIST PT BACK TO BED. PT CONFUSED. PT DENIES ANYTHING FURTHER. FALL PRECAUTIONS IN PLACE. BED IN LOWEST POSTION. ANGELICA ALARM ON AND WORKING. CALL LIGHT IN REACH. WILL CONTINUE TO MONITOR.
--- NOTE | 2018-03-15 18:11 | NUR ---
PT RESTING IN BED, EYES OPEN. NO C/O PAIN. NO S/S OF DISTRESS NOTED. PT DENIES ANYTHING FURTHER AT THIS TIME. CALL LIGHT IN REACH. WILL CONTINUE TO MONITOR.
--- NOTE | 2018-03-15 19:15 | NUR ---
RECEIVED CARE FROM DAY NURSE. LYING IN BED ON SIDE. REPORTS NO NEEDS AT THIS TIME. CALL LIGHT AT SIDE. PROCAL TO LEFT WRIST INFUSING PER ORDER.
[2018-03-15 20:47] VITALS: BP 101/66
[2018-03-16 00:41] VITALS: BP 94/57
[2018-03-16 04:00] VITALS: BP 106/68
--- NOTE | 2018-03-16 04:01 | NUR ---
PT SLEEPING. BREATHING EVEN AND UNLABORED. WILL CONTINUE POC.
[2018-03-16 09:14] VITALS: BP 102/66
--- NOTE | 2018-03-16 09:37 | NUR ---
PATIENT IN BED, SKIN W/D TO TOUCH, COLOR PINK, RESP. REGULAR AND EVEN AT 18. IV S/L TO LEFT WRIST, NO REDNESS OR SWELLING NOTED. ABDOMEN SOFT WITH BS + IN ALL 4 QUADS, DENIES ANY C/O PAIN OR DISCOMFORT WHEN ASKED. C/L WITHIN REACH AND SR'S UP X'S 2 AND BED IN LOWEST POSITION.
--- NOTE | 2018-03-16 10:03 | MORECARE ---
CASE MANAGEMENT DISCHARGE SUMMARY PATIENT: CAROL MUSTAFA UNIT: [id number] ADM DATE: 03/10/18 AGE: 27 : [birth year] SEX: F ROOM/BED: D.2226 AUTHOR: DIANADOC PHYSICIAN: REFERRING PHYSICIAN: MORRIS MCCORMICK MD DATE OF SERVICE: 03/16/18 Discharge Plan Patient Name: CAROL MUSTAFA Facility: [facility]:[place] : 1990 Planned Disposition: Home Anticipated Discharge Date: Discharge Date: Expected LOS: Initial Reviewer: [email or web address] Initial Review Date: 03/10/2018 Generated: 03/16/18 11:03 am Comments DCP- Discharge Planning Updated by [email or web address]: Dior Hinson on 03/16/18 8:[address] Patient Name: CAROL MUSTAFA Encounter No: [id number] : 1990 Primary Insurance: MEDICAID [place] Anticipated DC Date: Planned Disposition: Home External Planned Provider: : DCP follow-up note: Patient and family in agreement with discharge plan. No changes to plan. Case management will follow and assist as needed. Dior Sravan DCP- Discharge Planning Updated by [email or web address]: Yue Griffith on 03/12/18 11:[address] Patient Name: CAROL MUSTAFA Admission Status: ER Accout number: [id number] Admission Date: 03-10-2018 : 1990 Admission Diagnosis: Attending: MORRIS MCCORMICK Current LOS: 2 Anticipated DC Date: Planned Disposition: Home Primary Insurance: MEDICAID [place] Discharge Planning Comments: CM met with patient to assess discharge planning needs. 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 She does not use any DME or community resources she states her home is safe to return. CM will continue to follow and assist with dc ploanning Reptile Farmer: Yue Griffith DCPIA - Discharge Planning Initial Assessment Updated by [email or web address]: Yue Griffith on 03/12/18 12:14 pm * Is the patient Alert and Oriented? Yes * How many steps to enter\exit or inside your home? * PCP NONE * Pharmacy [facility] [address] * Preadmission Environment Home with Family * ADLs Independent * Equipment None * List name and contact numbers for known caregivers / representatives who currently or will assist patient after discharge: OJ () [phone] * Verbal permission to speak to the caregivers and representatives has been obtained from the patient. Yes * Community resources currently utilized None * Additional services required to return to the preadmission environment? No * Can the patient safely return to the preadmission environment? Yes * Has this patient been hospitalized within the prior 30 days at any hospital? Yes Last DP export: 03/12/18 11:40 a Patient Name: CAROL MUSTAFA Page [id number] at 1003 All edits/amendments must be made on the electronic document DICTATION DATE: 03/16/18 100 CTRS: MAYLIN 03/16/18 100 RPT#: [id number] DC DATE: STATUS: ADM IN [facility] [address] [place] [address] END OF REPORT
--- NOTE | 2018-03-16 10:09 | NUR ---
PATIENT UP WALKING ABOUT IN ROOM, AT BEDSIDE. IV REMOVED FROM LEFT WRIST AND PATIENT GIVEN DISCHARGE PAPERS, VERBALIZED UNDERSTANDING OF DISCHARGE INSTRUCTION.
--- NOTE | 2018-03-16 10:10 | NUR ---
VOLUNTEERS NOTIFIED FOR DISCHARGE, PT. LEFT VIA W/C VIA PRIVATE VEHICLE WITH AND SON.
--- NOTE | 2018-03-17 08:12 | MORECARE ---
CASE MANAGEMENT DISCHARGE SUMMARY PATIENT: CAROL MUSTAFA UNIT: [id number] ADM DATE: 03/10/18 AGE: 27 : [birth year] SEX: F ROOM/BED: D.2226 AUTHOR: TERA ORTIZ PHYSICIAN: REFERRING PHYSICIAN: MORRIS MCCORMICK MD DATE OF SERVICE: 03/17/18 Discharge Plan Patient Name: CAROL MUSTAFA Facility: [facility]:[place] : 1990 Planned Disposition: Home Anticipated Discharge Date: Discharge Date: 03/16/2018 Expected LOS: 0 Initial Reviewer: [email or web address] Initial Review Date: 03/10/2018 Generated: 03/17/18 9:12 am Comments DCP- Discharge Planning Updated by [email or web address]: Dior Hinson on 03/16/18 8:[address] Patient Name: CAROL MUSTFAA Encounter No: [id number] : 1990 Primary Insurance: MEDICAID [place] Anticipated DC Date: Planned Disposition: Home External Planned Provider: : DCP follow-up note: Patient and family in agreement with discharge plan. No changes to plan. Case management will follow and assist as needed. Dior Sravan DCP- Discharge Planning Updated by [email or web address]: Yue Griffith on 03/12/18 11:[address] Patient Name: CAROL MUSTAFA Admission Status: ER Accout number: [id number] Admission Date: 03-10-2018 : 1990 Admission Diagnosis: Attending: MORRIS MCCORMICK Current LOS: 2 Anticipated DC Date: Planned Disposition: Home Primary Insurance: MEDICAID [place] Discharge Planning Comments: CM met with patient to assess discharge planning needs. 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 She does not use any DME or community resources she states her home is safe to return. CM will continue to follow and assist with dc ploanning Generation Manager: Yeu Griffith DCPIA - Discharge Planning Initial Assessment Updated by [email or web address]: Yue Griffith on 03/12/18 12:14 pm * Is the patient Alert and Oriented? Yes * How many steps to enter\exit or inside your home? * PCP NONE * Pharmacy [facility] [address] * Preadmission Environment Home with Family * ADLs Independent * Equipment None * List name and contact numbers for known caregivers / representatives who currently or will assist patient after discharge: OJ () [phone] * Verbal permission to speak to the caregivers and representatives has been obtained from the patient. Yes * Community resources currently utilized None * Additional services required to return to the preadmission environment? No * Can the patient safely return to the preadmission environment? Yes * Has this patient been hospitalized within the prior 30 days at any hospital? Yes Last DP export: 03/16/18 9:03 a Patient Name: CAROL MUSTAFA Page [phone] at 0812 All edits/amendments must be made on the electronic document DICTATION DATE: 03/17/18810 FELLED SEAM OPERATOR: MAYLIN 03/17/18810 RPT#: [id number] DC DATE:03/16/18 STATUS: DIS IN [facility] [address] [place] [address] END OF REPORT
== END 2018-03-16 10:10 | disposition home or self-care (01) | DRG 438 ==
LOC: D.ER 18:53 → D.MS 20:54 → D.EDHOLD 20:54 → D.MS 21:41
PROVIDERS: Family Medicine; ADMIT Surgery
DX: K86.3 Pseudocyst of pancreas (principal); K85.90 Acute pancreatitis without necrosis or infection, unspecified; Z68.41 Body mass index [BMI] 40.0-44.9, adult; L27.1 Localized skin eruption due to drugs and medicaments taken internally; T50.995A Adverse effect of other drugs, medicaments and biological substances, initial encounter; E66.01 Morbid (severe) obesity due to excess calories

== ENCOUNTER → 2018-03-18 16:48 | Outpatient (CLI) | payer MEDICAID ==
[2018-03-11 09:55] VITALS: BMI 42.1
[2018-03-18 17:05] LABS: BASOPHILS 0.5 % (0-2); EOSINOPHILS 0.6 % (0-7); HEMATOCRIT 36.9 % (36.0-48.0); HEMOGLOBIN 12.6 g/dL (12-16); IMMATURE GRANULOCYTES 0.2 % (0-5); LYMPHOCYTES 26.7 % (15-50); MCH 29.4 pg (26.0-34.0); MCHC 34.1 g/dL (31.0-37.0); MEAN PLATELET VOLUME 9.3 fL (7.4-10.4); MONOCYTES 5.9 % (2-11); NEUTROPHILS 66.1 % (40-80); PLATELET COUNT 477 10x3/uL (130-400); RBC 4.29 10x6/uL (4.00-5.40); RDW 13.2 % (11.5-14.5); WBC 8.3 10x3/uL (4.8-10.8)
[2018-03-18 17:24] LABS: AMYLASE - SERUM 70 U/L (25-115); CALC OSMOLALITY 278 mosm/kg (275-300); CARBON DIOXIDE 27.7 mmol/L (21.0-32.0); CHLORIDE - SERUM 103 mmol/L (98-107); CREATININE - SERUM 0.7 mg/dL (0.6-1.3); GLUCOSE 87 mg/dL (74-106); LIPASE 546 U/L (73-393); POTASSIUM - SERUM 3.8 mmol/L (3.5-5.1); SODIUM 141 mmol/L (136-145); UREA NITROGEN 10 mg/dL (7-18); eGFR NON AFRICAN AMERICAN > 90 mL/min (90-120)
== END | disposition home or self-care (01) ==
LOC: D.LAB 16:48
PROVIDERS: Surgery
DX: K86.3 Pseudocyst of pancreas (principal)

== ENCOUNTER → 2018-04-21 12:39 | Outpatient (CLI) | payer MEDICAID ==
[2018-03-11 09:55] VITALS: BMI 42.1
[2018-04-21 13:11] LABS: BASOPHILS 0.2 % (0-2); EOSINOPHILS 0.6 % (0-7); HEMATOCRIT 36.2 % (36.0-48.0); HEMOGLOBIN 12.2 g/dL (12-16); IMMATURE GRANULOCYTES 0.3 % (0-5); LYMPHOCYTES 21.9 % (15-50); MCH 29.2 pg (26.0-34.0); MCHC 33.7 g/dL (31.0-37.0); MCV 86.6 fL (80.0-100.0); MEAN PLATELET VOLUME 9.3 fL (7.4-10.4); MONOCYTES 5.2 % (2-11); NEUTROPHILS 71.8 % (40-80); RBC 4.18 10x6/uL (4.00-5.40); RDW 13.5 % (11.5-14.5); WBC 10.5 10x3/uL (4.8-10.8)
[2018-04-21 13:13] LABS: PLATELET COUNT 300 10x3/uL (130-400)
[2018-04-21 13:25] LABS: ALBUMIN 3.7 g/dL (3.4-5.0); BILIRUBIN - DIRECT 0.12 mg/dL (0.00-0.30); BILIRUBIN - INDIRECT 0.37 mg/dL (0.00-1.00); BILIRUBIN - TOTAL 0.49 mg/dL (0.2-1.3); PROTEIN - SERUM 7.4 g/dL (6.4-8.2)
== END | disposition home or self-care (01) ==
LOC: D.LAB 12:39 → D.CT 13:30
PROVIDERS: Surgery
DX: K86.3 Pseudocyst of pancreas (principal)

== ENCOUNTER 2018-05-08 16:21 | Emergency (ER) | payer MEDICAID ==
[~2018-05-08] VITALS: Ht 157.5 cm; Wt 97.7 kg
[2018-05-08 16:26] VITALS: Ht 157.5 cm; Wt 97.7 kg
[2018-05-08] MEDS ORDERED: VIBRAMYCIN 100100 MG PO (18:41)
[2018-05-08] MEDS ORDERED: PHENERGAN DM SYR5 ML PO (18:41)
[2018-05-08 19:33] VITALS: BP 130/91
== END 2018-05-08 19:33 | disposition home or self-care (01) ==
LOC: D.ER 16:21
DX: J06.9 Acute upper respiratory infection, unspecified (principal); J40 Bronchitis, not specified as acute or chronic

== ENCOUNTER 2018-09-24 16:36 | Emergency (ER) | payer MEDICAID ==
[~2018-09-24] VITALS: Ht 157.5 cm; Wt 99.5 kg
[~2018-09-24 16:36] MED LIST changes: +PHENERGAN DM SYR5 ML PO; +VIBRAMYCIN 100100 MG PO
[2018-09-24 16:54] VITALS: Ht 157.5 cm; Wt 99.5 kg
[2018-09-24] MEDS ORDERED: PRENAVITE1 TAB PO (16:56)
[2018-09-24 18:31] VITALS: BP 109/70
== END 2018-09-24 18:28 | disposition home or self-care (01) ==
LOC: D.ER 16:36
DX: S50.811A Abrasion of right forearm, initial encounter (principal); S60.511A Abrasion of right hand, initial encounter; S80.211A Abrasion, right knee, initial encounter; Y04.2XXA Assault by strike against or bumped into by another person, initial encounter; Y93.89 Activity, other specified; Y92.89 Other specified places as the place of occurrence of the external cause

== ENCOUNTER 2019-02-28 07:22 | Inpatient (IN) | payer MEDICAID ==
[~2019-02-28] VITALS: Ht 157.5 cm; Wt 102.1 kg
[~2019-02-28 07:22] MED LIST changes: +PRENAVITE1 TAB PO
[2019-02-28 07:54] LABS: APPEARANCE CLEAR (CLEAR); BILIRUBIN NEGATIVE (NEGATIVE); COLOR YELLOW (YELLOW); GLUCOSE NEGATIVE (NEGATIVE); KETONE NEGATIVE (NEGATIVE); NITRITE NEGATIVE (NEGATIVE); PROTEIN NEGATIVE (NEGATIVE); SPECIFIC GRAVITY 1.015 (1.005-1.020); UROBILINOGEN NORMAL (NORMAL)
[2019-02-28 07:56] LABS: BACTERIA FEW /hpf (NEGATIVE); EPITHELIAL CELLS 0-5 /hpf (0-5); RED CELLS - URINE NONE SEEN /hpf (0-5); WHITE CELLS - URINE 0-5 /hpf (NEGATIVE)
[2019-02-28 08:28] VITALS: BP 116/71; Ht 157.5 cm; Wt 102.1 kg
[2019-02-28 09:18] LABS: HEMATOCRIT 33.5 % (36.0-48.0); HEMOGLOBIN 11.3 g/dL (12-16); MCH 30.2 pg (26.0-34.0); MCHC 33.7 g/dL (31.0-37.0); MCV 89.6 fL (80.0-100.0); MEAN PLATELET VOLUME 9.5 fL (7.4-10.4); RBC 3.74 10x6/uL (4.00-5.40); RDW 13.4 % (11.5-14.5); WBC 12.5 10x3/uL (4.8-10.8)
--- NOTE | 2019-02-28 19:10 | NUR ---
PT IN WITH FAMILY AT THIS TIME. EATING DINNER. NO DISTRESS NOTED. Michelle KELLEYRN
[2019-02-28 20:00] VITALS: BP 110/66
--- NOTE | 2019-02-28 20:00 | NUR ---
PT REC'D IN BED AT THIS TIME. NO DISTRESS NOTED. EPIDURAL LINE CAPPED. SALINE LOCK FLUSHED PITOCIN INFUSION IS COMPLETE. SEE FLOWSHEET FOR REMAINDER OF ASSESSMENT. Michelle KELLEY RN
--- NOTE | 2019-02-28 20:54 | NUR ---
CALLS VIA CALL LIGHT. STATES THAT SHE NEEDS TO VOID. REPORTS THAT LLE "FEELS TINGLY." PURPOSEFUL MOVEMENT OF BLE NOTED. NON SKID SOCKS PLACED. UP WITH STANDBY ASSIST, STEADY GAIT NOTED. VOIDED 700 MLS IN HAT. INSTRUCTED WITH RETURN DEMONSTRATION OF PERICARE USING PERIBOTTLE WITH BETADINE WASH, TUX, AND DERMAPLAST. 8 MLS RUBRA LOCHIA TO PERIPAD, NO CLOTS NOTED. PERIPAD AND GOWN CHANGED. PANTIES PROVIDED. DENIES DIZZINESS. AMBULTORY TO ROOM 1273 FOR CONTINUED PP CARE.
--- NOTE | 2019-02-28 21:01 | NUR ---
AMBULATORY TO ROOM FOR CONTINUED PP CARE. ORIENTED TO ROOM, SIDE RAILS, CALL LIGHT AND BATHROOM. VERBALIZES UNDERSTANDING. BED IN LOW POSITION WITH SRUPX2 CALL LIGHT AND PHONE WITHIN REACH. FOB AND OLDER CHILDREN REMAIN AT BEDSIDE. WILL CONTINUE TO MONITOR.
--- NOTE | 2019-02-28 21:08 | NUR ---
C/O ABD CRAMPING 10/10. TORADOL GIVEN PER ORDER AND PT REQUEST. EDUCATED ON MED, VERBALIZES UNDERSTANDING AND DENIES ADDITIONAL NEEDS.
[2019-02-28 21:23] VITALS: BP 114/67
--- NOTE | 2019-02-28 21:25 | NUR ---
VSS. BONDING WITH INFANT IN ARMS. BLANKET AND EXTRA PILLOWS PROVIDED PER PT REQUEST. DENIES ADDITIONAL NEEDS. BASIN AND RED BAG PROVIDED, PT INSTRUCTED TO PLACE ANY PADS, PANTIES, WASH CLOTHES, ETC WITH BLOOD IN RED BAG IN BR, VERBALIZES UNDERSTANDING. BED IN LOW POSITION WITH SRUP X2. CALL LIGHT AND PHONE WITHIN REACH. WILL CONTINUE TO MONITOR.
--- NOTE | 2019-02-28 21:45 | NUR ---
PAIN REASSESSMENT COMPLETED FOLLOWING TORADOL, 06/10, DENIES ADDITIONAL NEEDS AT THIS TIME. BONDING WITH INFANT. BED IN LOW POSITION WITH SRUP X2. CALL LIGHT AND PHONE WITHIN REACH. WILL CONTINUE TO MONITOR.
--- NOTE | 2019-02-28 22:00 | NUR ---
PT PROVIDED WITH ICE CREAM. NO OTHER NEEDS VOICED. Michelle KELLEY RN
--- NOTE | 2019-02-28 22:45 | NUR ---
PT PROVIDED WITH WATER AT THIS TIME. NO DISTRESS NOTED. Michelle KELLEY RN
--- NOTE | 2019-02-28 23:21 | NUR ---
TYLENOL GIVEN PER ORDER AND PT REQUEST. C/O ABD CRAMPING 08/10. ICE WATER AND SANDWICH TRAY PROVIDED. REINFORCED NPO P MN WITH PT, VERBALIZES UNDERSTANDING. ICE WATER PROVIDED. BED IN LOW POSITION WITH SRUP X2. CALL LIGHT AND PHONE WITHIN REACH. TO NBN PER PT REQUEST.
--- NOTE | 2019-03-01 00:20 | NUR ---
PT RESTING AT THIS TIME. DID NOT AWAKEN RESPS EVEN AD UNLABORED. ALL FOOD AND DRING REMOVED FROM ROOM AT THIS TIME. Michelle KELLEY RN
--- NOTE | 2019-03-01 02:25 | NUR ---
ROUNDS MADE. PT LAYING ON ABD, RESTING WITH EYES CLOSE. RESP REGULAR AND UNLABORED, NO S/S OF DISTRESS NOTED. PT NOT DISTURBED TO ALLOW FOR REST. IN NBN. BED IN LOW POSITION WITH SRUP X2. CALL LIGHT AND PHONE WITHIN REACH. WILL CONTINUE TO MONITOR.
--- NOTE | 2019-03-01 04:11 | NUR ---
LAYING ON ABD RESTING QUIETLY WITH EYES CLOSED. RESP REGULAR AND UNLABORED, NO S/S OF DISTRESS NOTED. PT NOT DISTURBED TO ALLOW FOR REST. INFANT REMAINS IN NBN. BED IN LOW POSITION WITH SRUP X2. CALL LIGHT AND PHONE WITHIN REACH. WILL CONTINUE TO MONITOR.
--- NOTE | 2019-03-01 06:15 | NUR ---
PT CALLED AND ASKED TO CHECK EPIDURAL PLACEMENT. NO DRAINAGE NOTED. TAPE SECURE. NO DISTRESS NOTED. Michelle KELLEY RN
[2019-03-01 06:44] LABS: BASOPHILS 0.1 % (0-2); EOSINOPHILS 0.5 % (0-7); HEMATOCRIT 33.2 % (36.0-48.0); IMMATURE GRANULOCYTES 0.3 % (0-5); LYMPHOCYTES 13.1 % (15-50); MCHC 33.1 g/dL (31.0-37.0); MCV 90.5 fL (80.0-100.0); MEAN PLATELET VOLUME 9.5 fL (7.4-10.4); MONOCYTES 6.3 % (2-11); NEUTROPHILS 79.7 % (40-80); PLATELET COUNT 234 10x3/uL (130-400); RBC 3.67 10x6/uL (4.00-5.40); RDW 13.6 % (11.5-14.5); WBC 14.6 10x3/uL (4.8-10.8)
--- NOTE | 2019-03-01 08:04 | NUR ---
called to room, pt sitting up in bed feeding . She questions when she will be going for her tubal ligation, explained that Dr Gottlieb would be in to talk to her before clinic. NO other needs at this time.
--- NOTE | 2019-03-01 09:00 | NUR ---
AM ASSESSMENT COMPLETED CHARTED ON FLOWSHEET. RATES PAIN AT 5/10 BUT DENIES NEED FOR PAIN MED. FUNDUS FIRM AT U/1 WITH LIGHT BLEEDING NOTED TO JEANETTE PAD. SALINE LOCK TO RIGHT WRIST FLUSHED EASILY WITH 5ML NS. DENIES NEEDS AT THIS TIME. IN NURSERY AT THIS TIME.
--- NOTE | 2019-03-01 09:19 | NUR ---
DR CONTRERAS SPOKE WITH PT ABOUT BTL NOT BEING DONE TODAY BUT 6WKS POST . PT IS AGREEABLE AND DENIES QUESTIONS. REGULAR BREAKFAST TRAY ORDERED
--- NOTE | 2019-03-01 09:34 | NUR ---
PT RATES PAIN AT 5/10. EPIDURAL CATH REMOVED INTACT AND VERIFIED WITH PT THAT BLACK TIP WAS INTACT. PT COMPLAINING OF DISCOMFORT AT SALINE LOCK, NO REDNESS NOTED BUT REMOVED PER PT REQUEST, IV CATH IS INTACT. DIETARY NOTIFIED FOR BREAKFAST.
--- NOTE | 2019-03-01 11:10 | NUR ---
DR. CONTRERAS CALLS TO UNIT INQUIRING IF PT RECEIVED RHOGAM FOR NEGATIVE BLOOD TYPE. BABY'S BLOOD TYPE NOTED TO BE NEGATIVE, INFORMED. NO RHOGAM NEEDED AT THIS TIME.
--- NOTE | 2019-03-01 12:57 | NUR ---
PAIN MED GIVEN SCANNED TO EMAR. PT SITTING UP IN BED HOLDING INFANT WHILE EATING HER LUNCH. LARGE CUP OF ICE PROVIDED PER HER REQUEST. NURSERY NURSE AT BEDSIDE TALKING WITH PT ABOUT FEEDINGS. SIDE RAILS UP X 2 WITH CALL LIGHT IN REACH.
--- NOTE | 2019-03-01 13:30 | NUR ---
PT RATES PAIN AT 2/10. LARGE CUP OF ICE WITH CARRIE COLA PER REQUEST. IN CRIB AT BEDSIDE, PT RESTING ON LEFT SIDE WITH CALL LIGHT IN REACH.
--- NOTE | 2019-03-01 16:20 | NUR ---
DENIES NEEDS AT THIS TIME. RATES PAIN AT 2/10. SIDE RAILS UP X 2 WITH PHONE AND CALL LIGHT WITH IN HER REACH.
--- NOTE | 2019-03-01 17:30 | NUR ---
DENIES NEEDS AT THIS TIME. FAMILY/FRIENDS AT BEDSIDE.CALL LIGHT IN REACH.
[2019-03-01 19:30] VITALS: BP 125/71
--- NOTE | 2019-03-01 19:30 | NUR ---
PT AWAKE, VISITING WITH FAMILY AND FRIENDS, PT'S SISTER BOTTLE FEEDING INFANT AT THIS TIME, ASSESSMENT PER FLOW SHEET, VS OBTAINED, FF, ML, U/2, PT REPORTS LITE BLEEDING WITH NO CLOTS, +F, NO BM, AND VOIDING WITH NO DIFFICULTY, PT C/O ABD CRAMPING, WILL ADM TYLENOL AND TORADOL
--- NOTE | 2019-03-01 19:43 | NUR ---
ADM TYLENOL AND TORADOL PER MD ORDERS, SEE EMAR, WITH FRESH COLA, DENIES FURTHER NEEDS AT THIS TIME, BED IN LOW POSITION, SIDE RAILS X 2, CALL LIGHT IN REACH, FAMILY AT BEDSIDE
--- NOTE | 2019-03-01 20:31 | NUR ---
PT UP IN ROOM, GOING TO BR, GAIT STEADY, PT DENIES NEEDS AT THIS TIME, FOB HOLDING
--- NOTE | 2019-03-01 21:45 | NUR ---
PT RESTING IN BED, HOLDING AND TALKING ON PHONE, DENIES NEEDS OR PAIN AT THIS TIME, FOB AT BEDSIDE
--- NOTE | 2019-03-01 22:30 | NUR ---
PT AWAKE, HOLDING INFANT, DENIES NEEDS OR PAIN AT THIS TIME, FOB AT BEDSIDE
--- NOTE | 2019-03-02 01:46 | NUR ---
PT BOTTLE FEEDING INFANT, ADM TYLENOL PER MD ORDERS, SEE EMAR, PT DENIES NEEDS AT THIS TIME, FOB AT BEDSIDE
--- NOTE | 2019-03-02 03:28 | NUR ---
PT RESTING WITH EYES CLOSED, ASLEEP IN BED WITH PT, PT AROUSES TO SOFT VERBAL STIMULATION, PT INFORMED THAT INFANT CANNOT BE IN BED WITH HER WHILE SHE IS SLEEPING, PT VERBALIZES UNDERSTANDING, BACK TO OPEN CRIB CART, PT DENIES NEEDS OR PAIN, FOB ASLEEP ON COUCH
--- NOTE | 2019-03-02 05:25 | NUR ---
PT AWAKE, HOLDING INFANT, TO NSY FOR WEIGHT, PT DENIES NEEDS OR PAIN, FOB AT BEDSIDE
[2019-03-02 09:26] VITALS: BP 119/66
--- NOTE | 2019-03-02 09:30 | NUR ---
assessment done. verbal responses appro to questions. sitting up in bed holding . denies needs. states she is up to bathroom without problems. watching tv at this time.
--- NOTE | 2019-03-02 12:00 | NUR ---
written and verbal d/c instructions reviewed w/ pt. pt voiced understanding of all d/c instructions including f/u w/ dr. randhawa @ [phone].
--- NOTE | 2019-03-02 13:35 | NUR ---
discharged home with - to auto via w/c per krishna hartmann rn.
[2019-03-03 07:11] LABS: RAPID PLASMA REAGIN Non Reactive (Non Reactive)
== END 2019-03-02 13:25 | disposition home or self-care (01) | DRG 807 ==
LOC: D.LDO 07:22 → D.LD 08:22
PROVIDERS: ADMIT Obstetrics & Gynecology; ATTEND Obstetrics & Gynecology
PROC: 10E0XZZ Delivery of Products of Conception, External Approach (ICD-10-PCS; principal; 2019-02-28)
PROC: 0HQ9XZZ Repair Perineum Skin, External Approach (ICD-10-PCS; 2019-02-28)
DX: O70.0 First degree perineal laceration during delivery (principal); Z37.0 Single live birth; Z3A.38 38 weeks gestation of pregnancy; O69.81X0 Labor and delivery complicated by cord around neck, without compression, not applicable or unspecified

== ENCOUNTER 2019-11-14 11:29 | Emergency (ER) | payer MEDICAID ==
[~2019-11-14] VITALS: Ht 157.5 cm; Wt 104.5 kg
[2019-11-14 11:36] VITALS: Ht 157.5 cm; Wt 104.5 kg
[2019-11-14] MEDS ORDERED: PREDNISONE (11:37)
[2019-11-14] MEDS ORDERED: AZITHROMYCIN (11:37)
[2019-11-14 12:31] LABS: CALC OSMOLALITY 266 mosm/kg (275-300); CALCIUM 8.4 mg/dL (8.5-10.1); CARBON DIOXIDE 22.2 mmol/L (21.0-32.0); CHLORIDE - SERUM 104 mmol/L (98-107); CREATININE - SERUM 0.6 mg/dL (0.6-1.3); GLUCOSE 102 mg/dL (74-106); POTASSIUM - SERUM 3.8 mmol/L (3.5-5.1); SODIUM 135 mmol/L (136-145); UREA NITROGEN 5 mg/dL (7-18); eGFR NON AFRICAN AMERICAN > 90 mL/min (90-120)
[2019-11-14 12:36] LABS: BASOPHILS 0.1 % (0-2); EOSINOPHILS 0.3 % (0-7); HEMATOCRIT 34.8 % (36.0-48.0); HEMOGLOBIN 11.9 g/dL (12-16); IMMATURE GRANULOCYTES 0.2 % (0-5); LYMPHOCYTES 7.6 % (15-50); MCH 29.7 pg (26.0-34.0); MCHC 34.2 g/dL (31.0-37.0); MCV 86.8 fL (80.0-100.0); MEAN PLATELET VOLUME 9.3 fL (7.4-10.4); MONOCYTES 3.1 % (2-11); NEUTROPHILS 88.7 % (40-80); PLATELET COUNT 277 10x3/uL (130-400); RBC 4.01 10x6/uL (4.00-5.40); RDW 13.8 % (11.5-14.5); WBC 14.4 10x3/uL (4.8-10.8)
[2019-11-14 12:38] LABS: ALBUMIN 2.9 g/dL (3.4-5.0); ALKALINE PHOSPHATASE 65 U/L (30-120); ALT (SGPT) 36 U/L (10-68); BILIRUBIN - TOTAL 0.42 mg/dL (0.2-1.3); PROTEIN - SERUM 6.8 g/dL (6.4-8.2)
[2019-11-14 16:01] LABS: BACTERIA FEW /HPF (NONE SEEN); BILIRUBIN NEGATIVE (NEGATIVE); EPITHELIAL CELLS 0-5 /hpf (0-5); KETONE LARGE mg/dL (NEGATIVE); NITRITE NEGATIVE (NEGATIVE); UROBILINOGEN NORMAL mg/dL (< 2); WHITE CELLS - URINE 0-5 HPF (0-4)
[2019-11-14 17:49] VITALS: BP 107/71
== END 2019-11-14 17:51 | disposition short-term general hospital (02) ==
LOC: D.ER 11:29
PROVIDERS: Family Medicine
DX: O26.892 Other specified pregnancy related conditions, second trimester (principal); Z3A.15 15 weeks gestation of pregnancy; R11.10 Vomiting, unspecified; E86.0 Dehydration

== ENCOUNTER → 2019-11-14 18:27 | Outpatient (CLI) | payer MEDICAID ==
[2019-11-14 11:36] VITALS: BMI 42.1
[~2019-11-14 18:27] MED LIST changes: +AZITHROMYCIN; +PREDNISONE
[2019-11-14 19:19] LABS: BACTERIA MODERATE /HPF (NONE SEEN); BILIRUBIN NEGATIVE (NEGATIVE); EPITHELIAL CELLS OCC /hpf (0-5); KETONE LARGE mg/dL (NEGATIVE); NITRITE NEGATIVE (NEGATIVE); UROBILINOGEN NORMAL mg/dL (< 2)
== END | disposition home or self-care (01) ==
LOC: D.LDO 18:27
PROVIDERS: ATTEND Obstetrics & Gynecology
DX: O26.899 Other specified pregnancy related conditions, unspecified trimester (principal); Z3A.00 Weeks of gestation of pregnancy not specified; R11.2 Nausea with vomiting, unspecified; R05 Cough

== ENCOUNTER 2020-04-30 20:42 | Inpatient (IN) | payer MEDICAID ==
[~2020-04-30] VITALS: Ht 157.5 cm; Wt 107.0 kg
[2020-04-30 21:37] VITALS: BP 109/64; Ht 157.5 cm; Wt 107.0 kg
[2020-04-30 22:26] LABS: HEMATOCRIT 31.1 % (36.0-48.0); HEMOGLOBIN 10.2 g/dL (12-16); MCH 27.6 pg (26.0-34.0); MCHC 32.8 g/dL (31.0-37.0); MCV 84.3 fL (80.0-100.0); MEAN PLATELET VOLUME 9.2 fL (7.4-10.4); RBC 3.69 10x6/uL (4.00-5.40); RDW 14.4 % (11.5-14.5); WBC 13.6 10x3/uL (4.8-10.8)
[2020-04-30 22:33] LABS: UDS - AMPHET NEGATIVE QUAL (NEGATIVE); UDS - BARB NEGATIVE QUAL (NEGATIVE); UDS - BENZO NEGATIVE QUAL (NEGATIVE); UDS - COCAINE NEGATIVE QUAL (NEGATIVE); UDS - OPIATE NEGATIVE QUAL (NEGATIVE); UDS - PCP NEGATIVE QUAL (NEGATIVE); UDS - THC NEGATIVE QUAL (NEGATIVE)
[2020-04-30 22:35] LABS: BILIRUBIN NEGATIVE (NEGATIVE); KETONE LARGE mg/dL (NEGATIVE); NITRITE NEGATIVE (NEGATIVE); UROBILINOGEN NORMAL mg/dL (< 2)
[2020-04-30 22:36] LABS: WHITE CELLS - URINE 0-5 HPF (0-4)
[2020-04-30 22:37] LABS: BACTERIA FEW HPF (NONE SEEN)
--- NOTE | 2020-05-01 18:58 | NUR ---
TOWEL PROVIDED PER PT REQUEST. PT DENIES NEEDS AT THIS TIME.
--- NOTE | 2020-05-01 19:13 | NUR ---
RN TO BEDSIDE FOR INTRODUCTIONS AND SHIFT ASSESSMENT. PT CURRENTLY FEEDING BABY. PAIN AND NEEDS ASSESSED. PT RATES PAIN 1-2/10. DENIES NEEDS AT THIS TIME. PT INFORMED RN WILL RETURN FOR SHIFT ASSESSMENT ONCE SHE HAS FINISHED FEEDING BABY. PT AGREEABLE.
[2020-05-01 19:48] VITALS: BP 113/70
--- NOTE | 2020-05-01 19:50 | NUR ---
RN TO BEDSIDE. PT HAS COMPLETED BABY'S FEEDING. SHIFT ASSESSMENT COMPLETED AT THIS TIME. SEE FLOWSHEET. PT REPORTS PAIN 03/12. CONFIRMATION MADE W/PT THAT SHE IS SCHEDULED FOR A PP TUBAL LIGATION TOMORROW MORNING AND CONSENTS WILL NEED TO BE SIGNED. PT VERBALIZES UNDERSTANDING. PT REPORTS SHE IS AMBULATORY AT [facility] AND HAS ALREADY VOIDED SINCE DELIVERY. EPIDURAL CATH REMAINS IN PLACE AND SECURE FOR TOMORROWS PROCEDURE. OFFERS MADE TO BRING PT SOMETHING TO EAT OR DRINK. PT REQUEST A SANDWHICH TRAY. AFTER ATTEMPTING TO OBTAIN, PT INFORMED THAT [facility] CURRENTLY DOESN'T HAVE A SANDWHICH TRAY, BUT HOUSESUPERVISOR HAS BEEN CALLED TO BRING SOME. OTHER ITEMS OFFERED. PT ACCEPTS. 1 CUP JELLO, 1 CUP PUDDING AND FRESH COLA SERVED. PT DENIES FURTHER NEEDS. PT INFORMED THAT SHE WILL BE MOVED TO A CLEAN ROOM SOON IT IS CLEAN. PT AGREEABLE. BED LOW, SIDE RAILS UP X 2. CALLIGHT AT PT'S SIDE.
--- NOTE | 2020-05-01 20:30 | NUR ---
PT TRANSFERED AMBULATORY TO 1257 PUSHING BABY IN CRIB. ORIENTED TO ROOM. PT CURRENTLY RATES PAIN 1/10. TOWELS,RAGS,CLEAN GOWN AND PP JEANETTE ITEMS PROVIDED. PT ABLE TO VERBALZIE CORRECT USAGE OF DERMABLAST,TUCKS AND JEANETTE BOTTLE. PP TREAT BOX, FRESH COLA AND [facility] MUG OF WATER SERVED. PT DENIES FURTHER NEEDS AT THIS TIME. NOW FACE TIMING HER FAMILY.
--- NOTE | 2020-05-01 21:30 | NUR ---
RN TO BEDSIDE FOR ROUNDING, IV FLUSH AND CONSENT SIGNATURE. CYNDIWHICH TRAY SERVED. SALINE LOCK TO RT HAND FLUSHED W/8ML NS. FLUSHES EASILY. SITE WNL. CONSENT FOR BILATERAL TUBAL LIGATION OBTAINED. WHILE AT BEDSIDE, PT REPORTS HER MOTHER IS BRINGING HER SOMETHING TO EAT AND WILL LEAVE AT THE ER. PT QUESTIONS IF IT CAN BE BROUGHT TO HER. PT INFORMED THAT YES, IT WILL BROUGHT TO HER WHEN THE ER CALLS TO SAY IT HAS ARRIVED. PT RATES PAIN 1/10. DENIES NEEDS AT THIS TIME. BABY IN OPEN CRIB AT BEDSIDE.
--- NOTE | 2020-05-01 22:00 | NUR ---
RN TO BEDSIDE TO INFORM PT SHE HAS AMBIEN ORDERED AND QUESTIONED IF SHE WOULD LIKE TO RECEIVE IT. PT DECLINES THE AMBIEN TONIGHT.
--- NOTE | 2020-05-01 22:35 | NUR ---
RN TO BEDSIDE TO ADMIN SCHEDULED TYLENOL. PT CURRENTLY SITTING UP IN BED TALKING ON PHONE. DENIES NEEDS. CALL LIGHT AT BEDSIDE.
--- NOTE | 2020-05-02 00:30 | NUR ---
RN TO BEDSIDE FOR ROUNDING. PT LYING AWAKE TO RT SIDE W/BABY AT HER SIDE. PAIN AND NEEDS ASSESSED. PT REPORTS ABD CRAMPING /10. TORADOL 10MG PO GIVEN W/SIPS OF WATER. PT DENIES FURTHER NEEDS OTHER THAN REQUESTING BABY BE RETURNED TO NBN SO SHE MAY REST FOR A WHILE. BABY TRANSFERED VIAS OPEN CRIB TO NBN.
--- NOTE | 2020-05-02 02:00 | NUR ---
ROUNDS MADE. PT RESTING TO RT LATERAL TILT W/EYES CLOSED. RESP EVEN AND UNLABORED. PT LEFT UNDISTURBED AT THIS TIME.
--- NOTE | 2020-05-02 03:57 | NUR ---
ROUNDS MADE. PT AWAKE CURRENTLY REPOSITIONING IN BED TO LEFT SIDE. PAIN AND NEEDS ASSESSSED. NO COMPLAINTS OR REQUEST.
[2020-05-02 06:00] VITALS: BP 93/40
--- NOTE | 2020-05-02 06:00 | NUR ---
ROUNDS MADE. PT LYING AWAKE IN BED WATCHING TV. RATES PAIN 1-2/10. SURGERY CHECKLIST COMPLETED. SALINE LOCK FLUSHED W/10ML NS. FLUSHES WELL. SITE WNL W/UT REDNESS OR SWELLING. VITAL SIGNS OBTAINED. SEE FLOWSHEET. PT DENIES NEEDS.
--- NOTE | 2020-05-02 06:54 | NUR ---
REPORT GIVEN TO ON COMING AM SHIFT.
--- NOTE | 2020-05-02 07:10 | NUR ---
OFF UNIT WITH OR TRANSPORT.
[2020-05-02 07:16] LABS: RAPID PLASMA REAGIN Non Reactive (Non Reactive)
[2020-05-02 07:34] LABS: HEMATOCRIT 31.4 % (36.0-48.0); HEMOGLOBIN 9.9 g/dL (12-16); MCH 26.9 pg (26.0-34.0); MCHC 31.5 g/dL (31.0-37.0); MCV 85.3 fL (80.0-100.0); MEAN PLATELET VOLUME 9.5 fL (7.4-10.4); RBC 3.68 10x6/uL (4.00-5.40); RDW 14.5 % (11.5-14.5); WBC 16.2 10x3/uL (4.8-10.8)
--- NOTE | 2020-05-02 08:55 | NUR ---
PT RECEIVED FROM RECOVERY. A,A,OX4. LR INFUSING AT 999 MLS/HR IN RT HAND. VS IN FLOWSHEET. RR EVEN AND UNLABORED, CLEAR IN ALL LOBES. S1,S2 PRESENT,REGULAR RR. BOWEL SOUNDS ACTIVE IN ALL 4 QUADRANTS. PT STATES SHE HAS NO PAIN. SMALL INCISON AT UMBILICUS, BANDAGE IN PLACE, C/D/I. PT DENIES NEEDS AT HTIS TIME. WILL CONTINUE TO MONITOR.
[2020-05-02 08:56] VITALS: BP 86/46
--- NOTE | 2020-05-02 10:40 | NUR ---
MEDICATIONS ADMINSITERED PER EMAR. DR COLLADO PROVIDED.
[2020-05-02 11:44] VITALS: BP 111/54
--- NOTE | 2020-05-02 14:00 | NUR ---
SPOKE WITH DR WYNNE REGARDING DISCHARGE. ORDERS RECEIVED.
--- NOTE | 2020-05-02 14:18 | NUR ---
PRESCRIPTION FOR TYLENOL #4 CALLED TO [facility] [address]. ORDER GIVEN TO PHARMACIST SANTI HOLLAND.
--- NOTE | 2020-05-02 15:30 | NUR ---
DISCHARGE INSTRUCTIONS GIVEN. PT VERBALIZES UNDERSTANDING.
[2020-05-02] MEDS ORDERED: TYLENOL #4 W/CO1 TAB PO (16:20)
--- NOTE | 2020-05-02 18:30 | NUR ---
PT OFF THE UNIT VIA WHEELCHAIR. PT STABLE [facility]
== END 2020-05-02 18:30 | disposition home or self-care (01) | DRG 798 ==
LOC: D.LD 20:42
PROVIDERS: ADMIT Obstetrics & Gynecology; ATTEND Obstetrics & Gynecology
PROC: 10E0XZZ Delivery of Products of Conception, External Approach (ICD-10-PCS; principal; 2020-05-01)
PROC: 0KQM0ZZ Repair Perineum Muscle, Open Approach (ICD-10-PCS; 2020-05-01)
PROC: 0UB74ZZ Excision of Bilateral Fallopian Tubes, Percutaneous Endoscopic Approach (ICD-10-PCS; 2020-05-02)
DX: O70.0 First degree perineal laceration during delivery (principal); Z37.0 Single live birth; Z3A.39 39 weeks gestation of pregnancy; Z30.2 Encounter for sterilization

== ENCOUNTER 2020-08-09 21:33 | Emergency (ER) | payer MEDICAID ==
[~2020-08-09] VITALS: Ht 157.5 cm; Wt 104.5 kg
[~2020-08-09 21:33] MED LIST changes: +TYLENOL #4 W/CO1 TAB PO
[2020-08-09 21:50] VITALS: Ht 157.5 cm; Wt 104.5 kg
[2020-08-09 23:14] LABS: BASOPHILS 0.3 % (0-2); EOSINOPHILS 0 % (0-7); HEMATOCRIT 33.5 % (36.0-48.0); LYMPHOCYTES 14.4 % (15-50); MCH 27.1 pg (26.0-34.0); MCHC 32.8 g/dL (31.0-37.0); MCV 82.6 fL (80.0-100.0); MEAN PLATELET VOLUME 7.1 fL (7.4-10.4); MONOCYTES 8.8 % (2-11); NEUTROPHILS 76.5 % (40-80); PLATELET COUNT 260 10x3/uL (130-400); RBC 4.05 10x6/uL (4.00-5.40); RDW 14.1 % (11.5-14.5); WBC 5.7 10x3/uL (4.8-10.8)
[2020-08-09 23:21] LABS: CALC OSMOLALITY 290 mosm/kg (275-300); CALCIUM 7.7 mg/dL (8.5-10.1); CARBON DIOXIDE 28.1 mmol/L (21.0-32.0); CHLORIDE - SERUM 107 mmol/L (98-107); CREATININE - SERUM 0.8 mg/dL (0.6-1.3); GLUCOSE 100 mg/dL (74-106); POTASSIUM - SERUM 3.2 mmol/L (3.5-5.1); SODIUM 146 mmol/L (136-145); UREA NITROGEN 12 mg/dL (7-18); eGFR NON AFRICAN AMERICAN 90 mL/min (90-120)
[2020-08-09 23:34] LABS: ALBUMIN 3.2 g/dL (3.4-5.0); ALKALINE PHOSPHATASE 75 U/L (30-120); ALT (SGPT) 150 U/L (10-68); BILIRUBIN - TOTAL 0.29 mg/dL (0.2-1.3); C-REACTIVE PROTEIN 1.8 mg/dL (0.0-0.9); PRO BNP 92 pg/mL (0-125); PROTEIN - SERUM 7.1 g/dL (6.4-8.2)
[2020-08-09 23:36] LABS: TROPONIN-I < 0.017 ng/mL (0.000-0.060)
[2020-08-10 01:00] VITALS: BP 115/71
== END 2020-08-10 01:02 | disposition home or self-care (01) ==
LOC: D.ER 21:33
PROVIDERS: Family Medicine
DX: J20.9 Acute bronchitis, unspecified (principal); R50.9 Fever, unspecified; R06.02 Shortness of breath